=== PATIENT | female | born 1940 | race Two or more races ===

== ENCOUNTER 2020-09-06 14:47 | Inpatient (IN) | payer OTHER, MEDICAID, SELFPAY ==
[~2020-09-06] VITALS: Ht 165.1 cm; Wt 84.8 kg
[2020-09-06 14:50] VITALS: BP 114/61
--- NOTE | 2020-09-06 15:00 | NUR ---
PT BIBA FROM HOME FOR LEGARGY AND BEING NOT ACTIVE OR RESPONSIVE TO QUESTIONS USUAL. PT EMS, PT WAS RELEASED FROM SNF YESTERDAY THAT SHE HAS BEEN LIVING THERE FOR 7 YEARS. PT WAS TREATED FOR UTI IN THE FACILITY BEFORE BEING SENT BACK HOME WITH UNKNOWN ABX. TESTED FOR COVID WITH NEGATIVE RESULT ONE WEEK AGO. PT IS A&OX3 W/O DIAPHORESIS, OR RESPIRATORY DISTRESS. PMH: HTN
[2020-09-06] MEDS ORDERED: NACL 0.9% 1,000 ML IV SCH ×2 (15:30→22:35)
[2020-09-06 16:39] LABS: BASOPHILS % (AUTO) 0.1 % (0.0-2.0); HEMATOCRIT 37.4 % (36-48); LYMPHOCYTES # (AUTO) 0.7 K/uL (2.5-16.5); MEAN CORPUSCULAR HEMOGLOBIN 26 pg (27-31); MEAN CORPUSCULAR HGB CONC 32 g/dL (33-37); MEAN CORPUSCULAR VOLUME 80.8 fL (80-94); MONOCYTES # (AUTO) 0.5 K/uL (0.8-1.0); MONOCYTES % (AUTO) 12.7 % (1.7-9.3); NEUTROPHILS # (AUTO) 2.7 K/uL (1.8-7.7); NEUTROPHILS % (AUTO) 69.2 % (42.2-75.2); PLATELET COUNT (AUTO) 193 K/uL (140-450); RED BLOOD CELL COUNT(AUTO) 4.63 MIL/uL (4.20-5.40); RED CELL DISTRIBUTION WIDTH 13.6 % (11.6-13.7)
[2020-09-06 17:33] LABS: ALBUMIN 2.9 g/dL (3.4-5.0); ANION GAP 14.1 (8-16); ASPARTATE AMINOTRANSFERASE 32 U/L (15-37); CARBON DIOXIDE 26.9 mmol/L (21-32); CHLORIDE 103 mmol/L (98-107); CREATININE 0.8 mg/dL (0.6-1.3); GLUCOSE 116 mg/dL (74-106); SODIUM SERUM 141 mmol/L (136-145); TOTAL BILIRUBIN 0.5 mg/dL (0.0-1.0); UREA NITROGEN, BLOOD 23 mg/dL (7-18)
[2020-09-06 18:19] LABS: BILIRUBIN,URINE NEGATIVE (NEGATIVE); BLOOD, URINE NEGATIVE (NEGATIVE); COLOR,URINE YELLOW (YELLOW); LEUKOCYTE ESTERASE ,URINE TRACE (NEGATIVE); NITRITE, URINE POSITIVE (NEGATIVE); UGLUCOSE NEGATIVE (NEGATIVE)
[2020-09-06 18:26] LABS: APPEARANCE,URINE CLOUDY (CLEAR)
--- NOTE | 2020-09-06 18:30 | NUR ---
RECEIVED IN BED 1 WITH C/O LETHARGY. IS RESTING WITH EYES CLOSED RESPIRATIONS REGULAR AND UNLABORED.
[2020-09-06 18:34] LABS: RBC,URINE NONE SEEN /HPF (0-5)
--- NOTE | 2020-09-06 19:20 | NUR ---
RECEIVED REPORT FROM VIOLET CHRISTENSEN
--- NOTE | 2020-09-06 20:00 | NUR ---
PT CHANGED INTO A GOWN, REPOSITIONED FOR COMFORT. PT REMAINS ON BEDSIDE MONITOR.
[2020-09-06] MEDS ORDERED: cefTRIAXone 1,000 MG VIAL ONE (20:07)
--- NOTE | 2020-09-06 20:25 | NUR ---
PT C/O BLATERAL ARM PAIN, STATES SHE TAKE TYLENOL # 3 AT HOME, MD KELLEY ORDERED MED
--- NOTE | 2020-09-06 21:20 | NUR ---
REPORT CALLED TO MARGARITO CHRISTENSEN ON MST.
[2020-09-06] MEDS ORDERED: HYDROcodone/APAP 5/325 MG 1 TAB TAB PO ONE (21:25)
[2020-09-06] MEDS ORDERED: CRUSHER, PILL MC ONE (21:35)
--- NOTE | 2020-09-06 21:38 | NUR ---
UNABLE TO MEDICATE WITH NORCO, NO PILL MANAGER AEROSPACE IN ER, MED MD ROBERT AWARE AND NEW ORDER RECEIVED
--- NOTE | 2020-09-06 21:38 | NUR ---
RECEIVED REPORT FROM HEATH CHRISTENSEN FROM THE ED. PT IS ANTICIPATED TO ARRIVE APPROXIMATELY 15MINS.
[2020-09-06] MEDS ORDERED: MORPHINE SULFATE 2 MG/ML SYR IVP ONE (21:40)
--- NOTE | 2020-09-06 22:05 | NUR ---
PT ARRIVED TO THE UNIT VIA GURNEY. PT IS A/0X2 TO NAME AND DATE OF , HEAD NORMAL CEPHALIC, SPEECH IS CLEAR, SPANISH SPEAKING, ABLE TO MAKE NEEDS KNOWN, EQUAL BILATERAL EYEBROWS, SYMMETRICAL SMILE, PMMM, NO JVD NOTED AT THIS TIME. CHEST IS SYMMETRICAL, BREATHING UNLABORED, CHEST RISES ARE EQUAL BILATERAL, ON 02 2L VIA NC, SATURATING AT 98%. TELE MONITOR ATTACHED. ABD IS SOFT, FLAT, NON-TENDER. SKIN IS WARM, SMOOTH, CDI, 20G IV TO L HAND, PATENT, ASYMPTOMATIC, INTACT, NORMAL SKIN TURGOR NOTED. NS BOLUS INFUSING AT THIS TIME. EQUAL BILATERAL PEDAL PULSES NOTED. PT IS A FALL RISK, YELLOW GOWN AND SOCKS APPLIED, FALL RISK SIGN POSTED. MRSA SCREEN COMPLETE. ORIENTED THE PT TO STAFF, ROOM, AND CALL LIGHT. SAFETY PRECAUTIONS IN PLACE. CALL LIGHT WITHIN REACH. ALL STAFF TO OBSERVE ISOLATION PRECAUTIONS.
--- NOTE | 2020-09-06 22:05 | NUR ---
Patient will be admitted to care of DR DOSHI. Admited to TELE. Will go to room 119A. Belongings list completed. Report to MARGARITO CHRISTENSEN.
[2020-09-06] MEDS ORDERED: DOCUSATE SODIUM 100 MG GELCAP PO PRN (22:35)
[2020-09-06] MEDS ORDERED: POTASSIUM CHLORIDE 10 MEQ TABER PO PRN (22:35)
[2020-09-06] MEDS ORDERED: ONDANSETRON 4 MG/2 ML VIAL IM/IVP PRN (22:35)
[2020-09-06] MEDS ORDERED: ACETAMINOPHEN 325 MG TAB PO PRN (22:35)
[2020-09-06] MEDS ORDERED: HYDROcodone/APAP 7.5/325 MG 1 TAB PO PRN (22:35)
[2020-09-06] MEDS ORDERED: ALBUTEROL HFA MDI 90 MCG/ACTUATION 8 GM INH PRN (22:35)
[2020-09-06 23:28] LABS: CHOL/HDL RATIO 2.7 (1-4.5); FREE T4 (FREE THYROXINE) 1.23 ng/dL (0.76-1.46); MAGNESIUM 1.9 mg/dL (1.8-2.4); PHOSPHORUS 2.9 mg/dL (2.5-4.9); THYROID STIMULATING HORMONE 2.13 uIU/mL (0.34-3.74)
--- NOTE | 2020-09-06 23:54 | NUR ---
GRAND-DAUGHTER TAHIRA CALLED FOR UPDATE ON PT. UPDATE WAS GIVEN. PT ALSO SPOKE WITH THE GRAND-DAUGHTER OVER THE PHONE.
--- NOTE | 2020-09-07 00:35 | NUR ---
ADMINISTERED K DUR PER MD ORDER. PT DIDN'T LIKE THE TASTE OF THE MEDICATION. EDUCATION RENDERED AND PT FINISHED THE MEDICATION. NO SIGNS OF DISTRESS NOTED.
--- NOTE | 2020-09-07 02:25 | NUR ---
PT IS SLEEPING. VISIBLE CHEST RISE NOTED.
[2020-09-07 04:00] VITALS: BP 155/56
--- NOTE | 2020-09-07 04:59 | NUR ---
MASTERCAM PROGRAMMER IS AT BEDSIDE TO RENDER PERICARE AND REPOSITION PT.
--- NOTE | 2020-09-07 06:57 | NUR ---
PATIENT HAS BEEN SCREENED AND CATEGORIZED MODERATE NUTRITION RISK. PATIENT WILL BE SEEN WITHIN 3-5 DAYS OF ADMISSION. 09/08/20-09/10/20 LOUISE ARANA MS, RDN
--- NOTE | 2020-09-07 07:15 | NUR ---
RECEIVED REPORT FROM SOFTWARE TECHNICIAN. AOX2, ABLE TO MAKE NEEDS KNOWN, NO C/O PAIN, BREATHING EVEN AND UNLABORED, ON O2 2L VIA NC, SATURATING AT 98%. TELE MONITOR ATTACHED. SKIN INTACT. WITH 22G IV TO L HAND, PATENT AND INTACT RUNNING NS AT 30CC/HR. SAFETY PRECAUTIONS IN PLACE. CALL LIGHT WITHIN REACH. ISOLATION PRECAUTIONS OBSERVED. WILL CONTINUE TO MONITOR.
--- NOTE | 2020-09-07 07:29 | NUR ---
ENDORSED CARE TO AM NURSE. PT IS IN STABLE CONDITION
[2020-09-07 08:00] VITALS: BP 139/66
[2020-09-07 08:04] LABS: BASOPHILS % (AUTO) 0.1 % (0.0-2.0); HEMATOCRIT 37.5 % (36-48); HEMOGLOBIN 12.4 g/dL (12.0-16.0); LYMPHOCYTES # (AUTO) 0.5 K/uL (2.5-16.5); LYMPHOCYTES % (AUTO) 13.1 % (20.5-51.1); MEAN CORPUSCULAR HEMOGLOBIN 27 pg (27-31); MEAN CORPUSCULAR HGB CONC 33 g/dL (33-37); MEAN CORPUSCULAR VOLUME 80.9 fL (80-94); MONOCYTES # (AUTO) 0.3 K/uL (0.8-1.0); MONOCYTES % (AUTO) 7.6 % (1.7-9.3); NEUTROPHILS # (AUTO) 3.3 K/uL (1.8-7.7); NEUTROPHILS % (AUTO) 79.2 % (42.2-75.2); PLATELET COUNT (AUTO) 161 K/uL (140-450); RED BLOOD CELL COUNT(AUTO) 4.64 MIL/uL (4.20-5.40); RED CELL DISTRIBUTION WIDTH 13.5 % (11.6-13.7); WHITE BLOOD COUNT (AUTO) 4.1 K/uL (4.8-10.8)
[2020-09-07 08:09] LABS: ANION GAP 14.5 (8-16); CARBON DIOXIDE 27.6 mmol/L (21-32); CHLORIDE 103 mmol/L (98-107); CREATININE 0.7 mg/dL (0.6-1.3); GLUCOSE 101 mg/dL (74-106); POTASSIUM 4.1 mmol/L (3.5-5.1); SODIUM SERUM 141 mmol/L (136-145); UREA NITROGEN, BLOOD 16 mg/dL (7-18)
[2020-09-07] MEDS: ASCORBIC ACID 500 MG TAB PO SCH (09:00)
[2020-09-07] MEDS: ZINC SULF 220 MG CAP PO SCH (09:00)
[2020-09-07] MEDS ORDERED: AZITHROMYCIN 250 MG TAB PO SCH (09:00)
--- NOTE | 2020-09-07 09:10 | NUR ---
PT REFUSED PO MEDS, AND REFUSED TO EAT BREAKFAST. FAMILY AND MD MADE AWARE. LEFT HAND IV INFILTRATED. UNABLE TO REINSERT IV AFTER 3 ATTEMPTS. MD MADE AWARE AND ORDERED TO INSERT PICC LINE.
--- NOTE | 2020-09-07 11:30 | NUR ---
PT RESTING IN BED AT THIS TIME. AWAKE AND CONFUSED, NO C/O PAIN, RESPIRATIONS ARE EVEN AND UNLABORED
[2020-09-07 12:00] VITALS: BP 136/45
--- NOTE | 2020-09-07 13:22 | NUR ---
PT ASLEEP IN BED, NO APPARENT DISTRESS, NO S/S PF PAIN
--- NOTE | 2020-09-07 14:00 | NUR ---
PER MEDICAL LEAD, PT HAD DIFFICULTY SWALLOWING AND CHEWING FOOD. MD NOTIFIED AND ORDERED SWALLOW EVAL AND PUREE DIET
[2020-09-07 16:00] VITALS: BP 124/46
[2020-09-07] MEDS ORDERED: PHENYLEPHRINE 0.25% 1 EA SUPP RC PRN (16:00)
--- NOTE | 2020-09-07 16:45 | NUR ---
PT AWAKE BUT CONFUSED, VERBAL, FLACC 0, NO SOB
--- NOTE | 2020-09-07 17:00 | NUR ---
CALLED PICC NURSE. NO ANSWER BUT LEFT MESSAGE. ALSO CALLED BALWINDER PICC LINE NURSE, NO ANSWER BUT LEFT MESSAGE
[2020-09-07] MEDS ORDERED: remdesivir COMMUNICATION ORDER 1 EA MISC MC PRN (17:40)
--- NOTE | 2020-09-07 19:10 | NUR ---
RECEIVED PT AAOX 1 TO 2 - SLEEPING MOST OF THE TIME . NO IV ACCESS - FOR PICC LINE INSERTION - FOR PICC CONSENT , DENIES PAIN . NID - O2 SAT WNL - W/ O2 AT 2LPM/NC . PLAN OF CARE DISCUSSED BUT NEEDS REINFORCEMENT DUE TO MENTAL STATUS . SAFETY MEASURES IN PLACE - BED ALARM ON . ON TELE MONITOR - SR . WILL CONT. TO MONITOR . CALL LIGHT WITHIN REACH .
--- NOTE | 2020-09-07 19:10 | NUR ---
ENDORSED TO LOADER FOR CONTINUITY OF CARE
--- NOTE | 2020-09-07 20:13 | NUR ---
DR LAGOS EXPLAIN TO RELATIVE ( JENNIFER ) ABOUT THE PICC LINE , CONVALESCENT PLASMA AND RESUSCITATION - THE RELATIVE DECIDED DNR FOR THE PT , REFUSE FOR CONVALESCENT PLASMA , BUT AGREE FOR PICC LINE INSERTION . DR LAGOS ORDER BISACODYL PER RECTUM DAILY - PER PT'S RELATIVE PT HAS CHRONIC CONSTIPATION . Addendum: 09/08/20 at 0320 by Nirali Walters RN GOT TEL . CONSENT FOR PICC LINE INSERTION FROM JENNIFER CORRIGAN
--- NOTE | 2020-09-07 20:31 | NUR ---
CONTACT PICC LINE TECH . - LEFT MSG - WILL WAIT THE RESPONSE .
[2020-09-07 21:07] VITALS: BP 133/62
--- NOTE | 2020-09-07 23:15 | NUR ---
DR. AL DO ROUNDS . INFORM HIM PT'S RELATIVE REFUSED CONVALESCENT PLASMA
[2020-09-07] MEDS ORDERED: bisacodyL 10 MG SUPP RC PRN (23:35)
[2020-09-08 00:53] VITALS: BP 107/54
--- NOTE | 2020-09-08 02:00 | NUR ---
I CONTACTED PICC LINE TECH AT 2130 - NOBODY SHOW UP UNTIL THIS TIME - PT HAS NO IV ACCESS - DNR - INFORM BURRER MARKER AXLE .
--- NOTE | 2020-09-08 04:00 | NUR ---
MADE ROUNDS , NO S/SX OF ACUTE DITRESS NOTED . ON TELE MONITOR . CALL LIGHT WITHIN REACH .
[2020-09-08 04:15] VITALS: BP 122/63
--- NOTE | 2020-09-08 06:00 | NUR ---
AWAKE , O2 SAT WNL , NO S/SX OF ACUTE DISTRESS NOTED . CALL LIGHT WITHIN REACH .
--- NOTE | 2020-09-08 07:00 | NUR ---
FOLLOW UP TO TEST DIRECTOR - TO RE PAGE THE PICC BIODIESEL ENGINEERING MANAGER - PT HAS NO IV ACCESS - POOR ORAL INTAKE , NO IVF SINCE YESTERDAY , SERUM K + IS LOW , AND THERE IS PENDING ANTIBIOTIC . BP WNL . TELE MONITOR - SR .
--- NOTE | 2020-09-08 07:05 | NUR ---
RECEIVED REPORT FROM NIGHT NURSE PATIENT IS AAOX1-2, ON ASPIRATION PRECAUTION, SKIN INTACT, NO IV LINE PER ENVIRONMENTAL HEALTH AND SAFETY LEADER NURSE, REFUSED COVALESCENT, PATIENT DOESNT WANT TO EAT, POOR ORAL INTAKE, INCONTINENT, PICC LINE CONSENT DONE. SAFETY MEASURES IN PLACE CALL LIGHT WITHIN REACH.WILL CONTINUE TO MONITOR
--- NOTE | 2020-09-08 07:09 | NUR ---
Called [facility] RN [phone] and heydi
[2020-09-08 07:17] LABS: ANION GAP 17.4 (8-16); CARBON DIOXIDE 25.3 mmol/L (21-32); CHLORIDE 103 mmol/L (98-107); CREATININE 0.7 mg/dL (0.6-1.3); GLUCOSE 96 mg/dL (74-106); POTASSIUM 3.7 mmol/L (3.5-5.1); SODIUM SERUM 142 mmol/L (136-145); UREA NITROGEN, BLOOD 15 mg/dL (7-18)
[2020-09-08 07:19] LABS: BASOPHILS % (AUTO) 0.2 % (0.0-2.0); HEMATOCRIT 37.9 % (36-48); HEMOGLOBIN 12.3 g/dL (12.0-16.0); LYMPHOCYTES # (AUTO) 0.6 K/uL (2.5-16.5); LYMPHOCYTES % (AUTO) 13.3 % (20.5-51.1); MEAN CORPUSCULAR HEMOGLOBIN 26 pg (27-31); MEAN CORPUSCULAR HGB CONC 32 g/dL (33-37); MEAN CORPUSCULAR VOLUME 80.3 fL (80-94); MONOCYTES # (AUTO) 0.4 K/uL (0.8-1.0); MONOCYTES % (AUTO) 7.7 % (1.7-9.3); NEUTROPHILS # (AUTO) 3.7 K/uL (1.8-7.7); NEUTROPHILS % (AUTO) 78.8 % (42.2-75.2); PLATELET COUNT (AUTO) 190 K/uL (140-450); RED BLOOD CELL COUNT(AUTO) 4.72 MIL/uL (4.20-5.40); RED CELL DISTRIBUTION WIDTH 13.4 % (11.6-13.7); WHITE BLOOD COUNT (AUTO) 4.7 K/uL (4.8-10.8)
[2020-09-08 08:00] VITALS: BP 101/48
[2020-09-08 08:00] LABS: ALBUMIN 2.8 g/dL (3.4-5.0); ANION GAP 16.1 (8-16); ASPARTATE AMINOTRANSFERASE 49 U/L (15-37); CARBON DIOXIDE 25.5 mmol/L (21-32); CHLORIDE 103 mmol/L (98-107); CREATININE 0.7 mg/dL (0.6-1.3); GLUCOSE 94 mg/dL (74-106); POTASSIUM 3.6 mmol/L (3.5-5.1); SODIUM SERUM 141 mmol/L (136-145); TOTAL BILIRUBIN 0.6 mg/dL (0.0-1.0); UREA NITROGEN, BLOOD 15 mg/dL (7-18)
[2020-09-08] MEDS: ASCORBIC ACID 500 MG TAB PO SCH (09:00)
[2020-09-08] MEDS: ZINC SULF 220 MG CAP PO SCH (09:00)
[2020-09-08 09:06] LABS: T4 (THYROXINE) 7.7 ug/dL (4.5-12.0)
[2020-09-08] MEDS ORDERED: CLINICAL MONITORING MC PRN (09:40)
--- NOTE | 2020-09-08 10:00 | NUR ---
MEDICATION DUE GIVEN ENOXAPARIN SUBCUTANEOUSLY AND PATIENT REFUSED ORAL MEDICATIONS.
[2020-09-08] MEDS ORDERED: REMDESIVIR (EUA) 200 MG in NACL 0.9% 100 ML IV SCH (10:30)
[2020-09-08] MEDS: ENOXAPARIN 30 MG/0.3 ML SYR SUBQ SCH (10:47)
[2020-09-08] MEDS ORDERED: ROPI2TER PO (11:31)
[2020-09-08] MEDS ORDERED: ELA25 PO (11:31)
[2020-09-08] MEDS ORDERED: CARB1TAB8 PO (11:31)
[2020-09-08] MEDS ORDERED: [UNRECOGNIZED DRUG - CODE] PO (11:31)
[2020-09-08] MEDS ORDERED: RISP0.5T3 PO (11:31)
[2020-09-08 12:00] VITALS: BP 127/57
--- NOTE | 2020-09-08 12:00 | NUR ---
PATIENT REFUSE TO EAT BUT ABLE TO DRINK FLUIDS CIONSULTED WITH FNS AND RECOMMENDED TO GIVE ENSURE A SUPPLEMENT.
--- NOTE | 2020-09-08 14:05 | NUR ---
SPEECH THERAPIST WAS HERE FOR EVALUATION BUT PATIENT REFUSED AND WASNT ABLE TO DO EVALUUATION. PATIENT DOESNT WANT TO EAT. DR TENORIO AWARE.
--- NOTE | 2020-09-08 14:20 | NUR ---
DC PLANNIN YRS OLD FEMALE PATIENT WAS ADMITTED FROM HOME WITH A DX OF COVID +, UTI, METABOLIC ENCEPHALOPATHY PT HAS A HX OF CXR SHOWED BIBASAL ATELECTASIS. CT HEAD SHOWED NO INTRACRANIAL HEMORRHAGE. RAPID COVID TEST POSITIVE. BLOOD AND URINE CULTURE PENDING. STARTED COVID PROTOCOL ADMINISTERED REMDESIVIR , DECADRON ROCEPHIN AND AZITHROMYCIN IV ABX. CONSULTED WITH ID AND CAESAR. DC PLAN TO GO HOME WHEN STABLE CM TO FOLLOW. Addendum: 09/09/20 at 1548 by Dina Burger [facility] FOR [facility]. PER DR. TENORIO, WILL PLAN FOR HOSPICE EVAL ON THIS PATIENT, PENDING FAMILY DISCUSSION. VALE BALLESTEROS MADE AWARE. Addendum: 09/10/20 at 0922 by Carlos Randolph SW FAXED CLINICALS TO [facility] [phone]. LUCIEN CONTACTED AMPARO STEVENSON FOR CONTACT INFORMATION FOR FAMILY. AMPARO STEVENSON STATED SHE WOULD CONTACT LUCIEN WITH CONTACT INFORMATION. Addendum: 09/10/20 at 1323 by Malka Galindo RN DC PLANNING: PER [facility] PT IS GOING HOME WITH HOSPICE HAM MARKER TIME 1:30 PM. NOTIFIED ELVA CHRISTENSEN . VALE TO FOLLOW
--- NOTE | 2020-09-08 15:33 | NUR ---
*ST: Notes* Order received, chart reviewed. Cleared with RN, Gertrudis, for BDSE. Per RN, pt generally declines PO meds and meal trays, drinking only juice without difficulty. Pt seen bedside, anxious, on 2L O2 nc, verbalized simple phrases in clear vocal quality. Noted very dry oral mucosa. When Pt's HOB repositioned to close to 80 degrees, pt screamed, saying, "Ow! It hurts." Oral care attempted with pt shaking her head, yelling, and repeatedly saying, "I don't want to get hurt again. No! No! No!" Despite max encouragement, use of palm pressure point to calm Pt, pt continued to be anxious and screamed whenever any bolus touched pt's lips. PO trials deferred 2/2 poor participation. -Debra Garcia MA, CCC-CELL POURER
[2020-09-08 16:00] VITALS: BP 119/58
--- NOTE | 2020-09-08 17:12 | NUR ---
PATIENT IS FOR PICC LINE INSERTION AND STILL CONTINUES TO HAVE POOR APPETITE AND SAYS NO ON EVERYTHING.
--- NOTE | 2020-09-08 19:25 | NUR ---
ENDORSED TO NIGHT NURSE FOR CONTINUITY OF CARE,PT IS STABLE
--- NOTE | 2020-09-08 19:30 | NUR ---
ENDORSED TO NIGHT NURSE FOR CONTINUITY OF CARE. PT IS STABLE
--- NOTE | 2020-09-08 19:35 | NUR ---
RECEIVED PT IN STABLE CONDITION FROM AM NURSE. AWAKE,ALERT AND ORIENTED X1-2. ON TELE MONITOR. WITH NO SOB NOTED. COVID + . DROPLET PRECAUTION ENFORCED. ON O2 2L/NC. BEDREST. FREQ ROUNDS NEEDED. BED ON LOW POSITION. SIDE RAILS UP X2, CALL LIGHT WITHIN REACH. FOR PICC LINE INSERTION TONIGHT. WILL CONTINUE TO MONITOR.
[2020-09-08 20:25] VITALS: BP 150/59
--- NOTE | 2020-09-08 20:55 | NUR ---
PICC LINE INSERTED BY AMPARO BRITT . XR ALREADY DONE . WILL CALL MD IF IT IS OK TO USE.
--- NOTE | 2020-09-08 21:30 | NUR ---
DR. TENORIO SAID OK TO USE PICC LINE
--- NOTE | 2020-09-08 23:00 | NUR ---
CHECKED ON PT. ASLEEP. NO S/S OF ANY DISTRESS. O2 SAT 96% ON O22L/NC.
[2020-09-09] MEDS ORDERED: AZITHROMYCIN 250 MG TAB PO SCH (00:15)
[2020-09-09 00:38] VITALS: BP 107/70
--- NOTE | 2020-09-09 01:58 | NUR ---
PT REFUSED TO TAKE ZITHROMAX PO.(CRUSHED.).
[2020-09-09] MEDS ORDERED: CRUSHER, PILL MC ONE (02:00)
--- NOTE | 2020-09-09 03:30 | NUR ---
MADE ROUNDS. PT ASLEEP. NO DISTRESS NOTED.
[2020-09-09 04:15] VITALS: BP 112/77
--- NOTE | 2020-09-09 04:30 | NUR ---
INCONTINENT OF URINE AND STOOL ( SCANTY). CLEANED AND KEPT DRY. TURNED TO SIDES AND FOR COMFORT.
--- NOTE | 2020-09-09 06:05 | NUR ---
BLOOD WAS DRAWN FROM THE PICC LINE. WILL FOLLOW UP RESULT.
--- NOTE | 2020-09-09 06:42 | NUR ---
PT HOME MEDICATIONS STILL NEED APPROVAL FROM MD. WILL ENDORSE TO AM NURSE.
--- NOTE | 2020-09-09 06:52 | NUR ---
PT REFUSED TO TAKE PO MEDS/FLUIDS. CALLED DR. TENORIO IF PT CAN HAVE IVF AND IF HOME MEDS NEED TO CONTINUE HERE.
--- NOTE | 2020-09-09 06:55 | NUR ---
CLARIFIED WITH JENNIFER,SON ABOUT REMDESIVIR AND FFP. HE SAID HE IS REFUSING BOTH FOR NOW.
--- NOTE | 2020-09-09 06:56 | NUR ---
DR. TENORIO ORDERED IVF D5NS @60 ML /HR. AND SHE SAID SHE WILL ORDER TO START HOME MEDS THIS AM . WILL ENDORSE TO AM NURSE.
--- NOTE | 2020-09-09 07:05 | NUR ---
CALLED JENNIFER , SON LEFT MESSAGE TO LET HIM KNOW THAT MD ALREADY ORDERED IVF AND WILL ORDER TO START HOME MEDS FOR THIS AM.
[2020-09-09 07:17] LABS: BASOPHILS % (AUTO) 0.2 % (0.0-2.0); HEMATOCRIT 37.8 % (36-48); HEMOGLOBIN 12.3 g/dL (12.0-16.0); LYMPHOCYTES # (AUTO) 0.6 K/uL (2.5-16.5); LYMPHOCYTES % (AUTO) 12.5 % (20.5-51.1); MEAN CORPUSCULAR HEMOGLOBIN 26 pg (27-31); MEAN CORPUSCULAR HGB CONC 32 g/dL (33-37); MEAN CORPUSCULAR VOLUME 80.1 fL (80-94); MONOCYTES # (AUTO) 0.6 K/uL (0.8-1.0); NEUTROPHILS % (AUTO) 76.3 % (42.2-75.2); PLATELET COUNT (AUTO) 199 K/uL (140-450); RED BLOOD CELL COUNT(AUTO) 4.72 MIL/uL (4.20-5.40); RED CELL DISTRIBUTION WIDTH 13.5 % (11.6-13.7); WHITE BLOOD COUNT (AUTO) 5.2 K/uL (4.8-10.8)
--- NOTE | 2020-09-09 07:25 | NUR ---
RECEIVED PATIENT FROM NIGHT NURSE. PATIENT IN BED SLEEPING AT THIS TIME, NO FACIAL GRIMACE NOTED. RESP EVEN AND UNLABORED ON 2L NC, CHEST NOTED RISING, O2SAT 95%. BIBI PICC INFUSING D5NS 60ML/HR. DROPLET PRECAUTION OBSERVED. SAFETY MEASURES IN PLACE. CALL LIGHT WITHIN REACH. WILL CONTINUE TO MONITOR.
--- NOTE | 2020-09-09 07:25 | NUR ---
ENDORSED PT IN STABL;E CONDITION TO AM NURSE.
[2020-09-09 07:39] LABS: ALBUMIN 2.9 g/dL (3.4-5.0); ANION GAP 15.2 (8-16); ASPARTATE AMINOTRANSFERASE 48 U/L (15-37); CARBON DIOXIDE 26.2 mmol/L (21-32); CHLORIDE 104 mmol/L (98-107); CREATININE 0.7 mg/dL (0.6-1.3); GLUCOSE 114 mg/dL (74-106); POTASSIUM 3.4 mmol/L (3.5-5.1); SODIUM SERUM 142 mmol/L (136-145); TOTAL BILIRUBIN 0.6 mg/dL (0.0-1.0); UREA NITROGEN, BLOOD 18 mg/dL (7-18)
[2020-09-09 08:00] VITALS: BP 118/55
[2020-09-09] MEDS: ASCORBIC ACID 500 MG TAB PO SCH ×2 (09:00→09:34)
[2020-09-09] MEDS: ZINC SULF 220 MG CAP PO SCH ×2 (09:00→09:33)
[2020-09-09] MEDS: VITAMIN D 400 IU TAB PO SCH ×2 (09:00→09:33)
[2020-09-09] MEDS: AZITHROMYCIN 250 MG TAB PO SCH ×2 (09:00→09:33)
[2020-09-09] MEDS: ENOXAPARIN 30 MG/0.3 ML SYR SUBQ SCH (09:32)
[2020-09-09] MEDS: POTASSIUM CHLORIDE 20% 40 MEQ/15 ML UDC GT PRN (09:33)
--- NOTE | 2020-09-09 09:45 | NUR ---
PATIENT AWAKE AND ALERT, RESPONDING TO HER NAME AND ABLE TO MAKE NEEDS KNOWN. RESP EVEN AND UNLABORED ON 2L NC, O2 SAT 94%. NO FACIAL GRIMACE NOTED. OCCASIONAL OUTBURSTS REFUSING HER TREATMENT. PATIENT REFUSED ALL HER PO MEDICATIONS. PATIENT WAS ABLE TO TAKE HER POTASSIUM SUPPLEMENT AFTER NUMEROUS ATTEMPTS OF ENCOURAGEMENT. LOVENOX GIVEN VIA SQ. SKIN IS WARM TO TOUCH AND INTACT. BIBI PICC INTACT AND PATENT INFUSING D5NS 60ML/HR. HOB ELEVATED. SAFETY MEASURES IN PLACE. WILL CONTINUE TO MONITOR.
--- NOTE | 2020-09-09 10:15 | NUR ---
SPOKE TO PATIENT SON, JENNIFER. FAMILY STILL REFUSING PLASMA CONVALESCENT AND REMDESIVIR. PER JENNIFER, FAMILY WANTS PATIENT HOME ON HOSPICE. DR TENORIO MADE AWARE AND WILL BE CONTACTING FAMILY TO PROVIDED INFORMATION.
[2020-09-09] MEDS ORDERED: REMDESIVIR (EUA) 100 MG in NACL 0.9% 100 ML IV SCH (10:30)
[2020-09-09] MEDS: DEXT 5% /NACL 0.9% 1,000 ML IV SCH (10:34)
--- NOTE | 2020-09-09 10:35 | NUR ---
*ST: Bedside Swallow Evaluation* Pt is 79 yo F BIBA from home 09/06/2020 c fatigue, mild SOB, and rectal pain. Pt +COVID-19 rapid test. Per family, pt recently d/c from SNF 09/05/2020 (in which Pt was a resident for ~7 yrs?) c recent Tx for UTI. PMHx HTN. CXR 09/08 - increased bibasal ATX; superimposed infiltrate is not excluded. CTH 09/06 - no definite intracranial hemorrhage... area of ill-defined hypoattenuation involving the R frontal lobe c assoc questionable hyperattenuation vs beam hardening artifact. Noted pt started on Regular/Thin 09/07 but MEDICAL TERRITORY MANAGER reported Pt had difficulty chewing and downgraded to Puree/Thin. However, Pt has been refusing all PO's and PO meds per RN notes. Pt s/p PICC line placement 09/08. Cleared with RN, Jass, for BDSE. Per RN, pt's son verbalized interest in taking Pt home on hospice. Pt seen bedside, on +COVID-19 airborne isolation precautions, on 2L O2 nc, O2 sats 91-92% throughout session. Pt anxious, often yelling, "Please, no! Don't hurt me," in clear vocal quality. RN and CONTACT LENS FITTER provided frequent redirection and encouragement during session. Very limited PO trials given as Pt very anxious and often keeping her mouth closed. Only 1x 1/2 tsp apple sauce and ~2oz total of 1/2 tsp of thin liquids given. With apple sauce, bolus generally remained where placed. However, with subsequent thin liquid wash, pt cleared puree. Pt had slight delayed swallow trigger, fair laryngeal excursion, no overt coughing nor throat clearing with PO's given. Vocal quality remained clear, dry, and unchanged post PO's given. Plan of care, diet recommendations, and safe swallow strategies d/w pt and pt's RN. P: Rec consider Full Liquids diet as Pt noted to consistently take only thin liquids at bedside by 1/2 tsp with max encouragement Rec consider non-oral means of nutrition and medications 2/2 Pt's poor participation in PO trials across multiple individuals during admit vs hospice if aligned with Pt/family wishes Nsg to monitor and notify CONTACT LENS FITTER of changes in status -Debra Garcia MA, CCC-CONTACT LENS FITTER Addendum: 09/09/20 at [address] [address] Amended: Links added.
[2020-09-09 12:00] VITALS: BP 132/84
--- NOTE | 2020-09-09 12:18 | NUR ---
P.T. NOTES P.T. EVAL COMPLETED; REFER TO EVAL FOR DETAILS.
--- NOTE | 2020-09-09 12:35 | NUR ---
PATIENT IN BED, COMFORTABLE AND ALERT. RESPONDING TO NAME AND EYE OPENING SPONTANEOUS. NO NOTED ACUTE S/S OF DISTRESS AT THIS TIME. RESP EVEN AND UNLABORED ON 2LNC, O2SAT 94%. SAFETY MEASURES IN PLACE. WILL CONTINUE TO MONITOR.
[2020-09-09] MEDS: CARBIDOPA/LEVODOPA 25/100 MG 1 TAB PO SCH ×3 (13:17→17:43)
--- NOTE | 2020-09-09 14:40 | NUR ---
PT IN BED SLEEPING, CHEST NOTED RISING. O2 SAT 97%. NO NOTED DISTRESS AT THIS TIME. CALL LIGHT WITHIN REACH. WILL CONTINUE TO MONITOR.
--- NOTE | 2020-09-09 15:10 | NUR ---
09/09/20 RD INITIAL ASSESSMENT COMPLETED PLEASE REFER TO NUTRITION ASSESSMENT UNDER CARE ACTIVITY FOR ESTIMATED NUTRITIONAL NEEDS. 1. RECOMMEND FULL LIQUIDS PER RAG SORTER 2. CONTINUE ENSURE TID 3. ENCOURAGE PO INTAKE OF LIQUIDS AND PROVIDE ASSISTANCE WITH MEALS 4. CONSIDER NUTRITION SUPPORT IF ALIGNS WITH PATIENTS FAMILYS WISHES 5. RD TO FOLLOW-UP 2-3 DAYS, HIGH RISK CLAUDIA ARTIS, RD
[2020-09-09 16:00] VITALS: BP 137/64
--- NOTE | 2020-09-09 16:35 | NUR ---
PATIENT IN BED SLEEPING, RESP EVEN AND UNLABORED ON 3LNC, O2SAT 93%. NO NOTED ACUTE S/S DISTRESS AT THIS TIME. PATIENT IS EASILY AROUSED TO AWAKE. SAFETY MEASURES IN PLACE. WILL CONTINUE TO MONITOR.
[2020-09-09] MEDS: risperiDONE 1 MG TAB PO SCH ×2 (17:00→17:44)
--- NOTE | 2020-09-09 17:25 | NUR ---
O2 INCREASED TO 6L NC D/T DESAT TO 86%. PATIENT MAINTAINED O2SAT 92% ON 6LNC. PATIENT IS CONFUSED BUT ABLE TO RESPOND TO NAME. HARD TO FOLLOW COMMAND BUT AFTER NUMEROUS ATTEMPTS, PATIENT CAN FOLLOW COMMAND. NO FACIAL GRIMACE NOTED. CALL LIGHT WITHIN REACH. WILL CONTINUE TO MONITOR.
--- NOTE | 2020-09-09 19:09 | NUR ---
ENDORSED PATIENT TO NIGHT NURSE. PATIENT IN STABLE CONDITION.
--- NOTE | 2020-09-09 19:10 | NUR ---
RECEIVED PT IN STABLE CONDITION FROM AM NURSE. TELE PT. AWAKE ALERT BUT CONFUSED. OB DROPLET PRECAUTION/ISOLATION FOR COVID 19 +. NO SOB NOTED O2 SAT 93% ON O2 6L/NC. IVF INFUSING WELL ON THE RT UPPER ARM PICC LINE. CLEAR AND PATENT. FREQ ROUNDS NEEDED. BED ON LOW POSITION. SIDE RAILS UP X2. CALL LIGHT PLACED WITHIN REACH. WILL CONTINUE TO MONITOR.
[2020-09-09 20:00] VITALS: BP 157/66
--- NOTE | 2020-09-09 21:00 | NUR ---
DUE ROCEPHIN IV GIVEN SCHEDULED. PT INCONTINENT OF URINE. ASSISTED THE SEED CLEANER , CLEANED AND KEPT DRY . REPOSITIONED FOR COMFORT. ON SAT 98% AT THIS TIME.
--- NOTE | 2020-09-09 23:00 | NUR ---
MADE ROUNDS. PT IS ASLEEP. O2 SAT 99%. NO DISTRESS NOTED. WILL CONTINUE TO MONITOR.
[2020-09-10] VITALS: BP 112/44
[2020-09-10] MEDS: DEXT 5% /NACL 0.9% 1,000 ML IV SCH (00:22)
--- NOTE | 2020-09-10 01:00 | NUR ---
MADE ROUNDS. PT COMFORTABLY RESTING IN BED. NO SOB NOTED.
--- NOTE | 2020-09-10 03:00 | NUR ---
MADE ROUNDS. ASLEEP WITH NO DISTRESS NOTED. O2 SAT 99%. WILL CONTINUE TO MONITOR.
[2020-09-10 04:00] VITALS: BP 111/51
--- NOTE | 2020-09-10 05:30 | NUR ---
BLOOD DRAWN FROM PICC LINE. WILL FOLLOW UP RESULTS.
--- NOTE | 2020-09-10 07:20 | NUR ---
ENDORSED PT IN STABLE CONDITION TO AM NURSE.
--- NOTE | 2020-09-10 07:30 | NUR ---
RECEIVED PT AAOX1, CONFUSED. NO SOB NOTED, ON 6LPM OXYGEN VIA NASAL CANNULA WITH SATS AT 99%. NO SIGNS OF PAIN AT THIS TIME. WILL REPOSITION PT Q2H. BED ON LOWEST POSITION WITH 3 SIDE RAILS RAISED UP. CALL LIGHT WITHIN REACH. WILL CONTINUE TO MONITOR PT.
[2020-09-10 07:40] LABS: BASOPHILS % (AUTO) 0.2 % (0.0-2.0); HEMATOCRIT 34.4 % (36-48); HEMOGLOBIN 11.3 g/dL (12.0-16.0); LYMPHOCYTES # (AUTO) 0.5 K/uL (2.5-16.5); LYMPHOCYTES % (AUTO) 13.8 % (20.5-51.1); MEAN CORPUSCULAR HEMOGLOBIN 26 pg (27-31); MEAN CORPUSCULAR HGB CONC 33 g/dL (33-37); MEAN CORPUSCULAR VOLUME 80.3 fL (80-94); MONOCYTES # (AUTO) 0.4 K/uL (0.8-1.0); MONOCYTES % (AUTO) 10.6 % (1.7-9.3); NEUTROPHILS # (AUTO) 2.9 K/uL (1.8-7.7); NEUTROPHILS % (AUTO) 75.4 % (42.2-75.2); PLATELET COUNT (AUTO) 169 K/uL (140-450); RED BLOOD CELL COUNT(AUTO) 4.28 MIL/uL (4.20-5.40); RED CELL DISTRIBUTION WIDTH 13.4 % (11.6-13.7); WHITE BLOOD COUNT (AUTO) 3.9 K/uL (4.8-10.8)
[2020-09-10 07:58] LABS: MAGNESIUM 1.8 mg/dL (1.8-2.4); PHOSPHORUS 1.8 mg/dL (2.5-4.9)
[2020-09-10 08:00] VITALS: BP 131/61
[2020-09-10] MEDS: VITAMIN D 400 IU TAB PO SCH (09:00)
[2020-09-10] MEDS ORDERED: AMITRIPTYLINE 25 MG TAB PO SCH (09:00)
[2020-09-10] MEDS: AZITHROMYCIN 250 MG TAB PO SCH (09:07)
[2020-09-10] MEDS: ENOXAPARIN 30 MG/0.3 ML SYR SUBQ SCH (09:07)
[2020-09-10] MEDS: POTASSIUM CHLORIDE 20% 40 MEQ/15 ML UDC GT PRN (09:07)
[2020-09-10] MEDS: ZINC SULF 220 MG CAP PO SCH (09:08)
[2020-09-10] MEDS: ASCORBIC ACID 500 MG TAB PO SCH (09:08)
[2020-09-10] MEDS: CARBIDOPA/LEVODOPA 25/100 MG 1 TAB PO SCH ×2 (09:08→13:00)
[2020-09-10] MEDS ORDERED: CEPH250C16 PO (12:11)
--- NOTE | 2020-09-10 12:25 | NUR ---
@1000 HRS: SOPHIA FROM [facility] CALLED FOR REPORT. @1155: SUPRIYA FROM [facility] CALLED TO CONFIRM PT'S HT AND WT. [facility] TRANSPORT[facility] WILL BULK MATERIALS HANDLING PLANT OPERATOR PT BETWEEN 1-1:[address] RAO NOTIFIED. @1220: PT'S SON JENNIFER NOTIFIED REGARDING PT'S GOING BACK HOME ON HOSPICE. JENNIFER VERBALIZED UNDERSTANDING.
--- NOTE | 2020-09-10 14:00 | NUR ---
BIBI PICCLINE REMOVED ORDERED, CANNULA TIP INTACT.
--- NOTE | 2020-09-10 14:15 | NUR ---
TRANSPORT FROM [facility] CAME AND PICKED UP PT. DISCAHRGE PAPER WORKS GIVEN TO TRANSPORT TEAM. PT WHEELED TO THE FRONT LOBBY IN STABLE CONDITION. NO SOB NOTED. NO SIGNS OF PAIN. PT IS D/C HOME ON HOSPICE CARE WITH FAMILY.
== END 2020-09-10 14:25 | disposition hospice, home (50) | DRG 177 ==
LOC: MED 14:47 → MTU 20:19
PROVIDERS: ADMIT Emergency Medicine; ATTEND Emergency Medicine
PROC: 02HV33Z Insertion of Infusion Device into Superior Vena Cava, Percutaneous Approach (ICD-10-PCS; principal; 2020-09-06)
PROC: B548ZZA Ultrasonography of Superior Vena Cava, Guidance (ICD-10-PCS; 2020-09-06)
PROC: XW033E5 Introduction of Remdesivir Anti-infective into Peripheral Vein, Percutaneous Approach, New Technology Group 5 (ICD-10-PCS; 2020-09-09)
DX: U07.1 COVID-19 (principal); G93.41 Metabolic encephalopathy; J96.01 Acute respiratory failure with hypoxia; J12.89 Other viral pneumonia; N39.0 Urinary tract infection, site not specified; J98.11 Atelectasis; E44.0 Moderate protein-calorie malnutrition; I10 Essential (primary) hypertension; Z53.29 Procedure and treatment not carried out because of patient's decision for other reasons; E66.9 Obesity, unspecified; E87.6 Hypokalemia; K64.9 Unspecified hemorrhoids; R26.81 Unsteadiness on feet; E86.0 Dehydration; R13.10 Dysphagia, unspecified; F03.90 Unspecified dementia, unspecified severity, without behavioral disturbance, psychotic disturbance, mood disturbance, and anxiety; F39 Unspecified mood [affective] disorder; Z68.31 Body mass index [BMI] 31.0-31.9, adult; Z79.899 Other long term (current) drug therapy
CPT/HCPCS: 36415; 70450; 71045; 80048; 80053; 81001; 83036; 83605; 83615; 83690; 83735; 83880; 84100; 84436; 84439; 84443; 84479; 84484; 85025; 85379; 85610; 85651; 85730; 86140; 87040; 87081; 87086; 92610; 93005; 96361; 96365; 96375; 97110; 97112; 97530; 99285; J0696; J1644; J1650; J2270; J3535; J7060